=== PATIENT | female | born 1965 | race Caucasian/White ===

== ENCOUNTER → 2019-07-03 | Outpatient (REF) | payer MEDICAID, MEDICARE ==
[2019-07-03 14:07] LABS: AMORPHOUS SEDIMENT SMALL (NEGATIVE); APPEARANCE, URINE CLEAR (CLEAR); BACTERIA, URINE AUTO 1+ (NEGATIVE); BILIRUBIN, URINE AUTO NEGATIVE (NEGATIVE); BLOOD, URINE BLOOD 1+ (NEGATIVE); COLOR, URINE STRAW (YELLOW); GLUCOSE, URINE (UA) AUTO NEGATIVE (NEGATIVE); KETONE, URINE AUTO NEGATIVE (NEGATIVE); LEUKOCYTE ESTERASE, URINE AUTO NEGATIVE (NEGATIVE); MUCUS, URINE SMALL (NEGATIVE); NITRITE, URINE AUTO NEGATIVE (NEGATIVE); PROTEIN, URINE AUTO NEGATIVE (NEGATIVE); RBC, URINE AUTO 0 /HPF (0-3); SPECIFIC GRAVITY URINE AUTO 1.003 (1.002-1.035); SQUAMOUS EPITHELIAL CELL UR AU 1 /HPF (0-6); UROBILINOGEN, URINE AUTO 0.2 mg/dL (0.0-2.0); WBC, URINE AUTO 0 /HPF (0-3)
== END ==
LOC: M SMT 12:57
PROVIDERS: ATTEND Nurse Practitioner Women's Health
DX: R32 Unspecified urinary incontinence (principal)
CPT/HCPCS: 51798; 81001; 87086; G0463

== ENCOUNTER 2020-01-02 06:13 | Day surgery (SDC) | payer MEDICARE ==
[2020-01-02] VITALS (8 sets, daily range): BP systolic 82–108; BP diastolic 56–68
[~2020-01-02] VITALS: Ht 175.3 cm; Wt 99.3 kg
[~2020-01-02 06:13] MED LIST: ADV500INH INH; ASPI81TA85 PO; BUPR15TA PO; CRES10TA PO; CYMB60CA3 PO; DICY20TA11 PO; ESTR1TAB PO; LOSA25TA14 PO; PROAAER10 INH; PROT1TAB2 PO; QC F0.52 PO; REGL5TAB2 PO; SPIR12.9 INH; TOPA1TAB PO; TOPA50TA8 PO; VITA500079 PO; ceFAZolin SOD 2 GM in IV 1 EA IV ONE; estradiol cream VG
[2020-01-02] MEDS ORDERED: propofoL 200 MG/20 ML VIAL As Ordered ONE ×2 (07:10→07:11)
[2020-01-02] MEDS ORDERED: LIDOCAINE 2% INJ 100 MG/5 ML SDV (FOR ANES.) As Ordered ONE ×2 (07:10→07:11)
[2020-01-02] MEDS ORDERED: MIDAZOLAM INJ 2 MG/2 ML VIAL (J2250) As Ordered ONE (07:10)
[2020-01-02] MEDS ORDERED: fentaNYL 100 MCG/2 ML INJECTION (J3010) As Ordered ONE ×2 (07:11→09:39)
[2020-01-02] MEDS ORDERED: ESTROGENS VAGINAL CREAM 30GM As Ordered ONE (07:13)
[2020-01-02] MEDS ORDERED: BUPIVACAINE/EPIN 0.25% 30 ML VIAL As Ordered ONE (07:13)
[2020-01-02] MEDS ORDERED: METHYLENE BLUE 0.5% (5MG/ML) 10 ML AMP (PROVAYBLUE)(Q9968 PER 1MG) As Ordered ONE (07:14)
[2020-01-02] MEDS ORDERED: BACITRACIN PWD 50,000 UNITS VIAL As Ordered ONE (07:14)
[2020-01-02] MEDS ORDERED: dexameTHASONE 4 MG/ML 1ML VIAL (J1100) As Ordered ONE (07:45)
[2020-01-02] MEDS ORDERED: ONDANSETRON 4MG/2ML VIAL (J2405) As Ordered ONE (07:59)
[2020-01-02] MEDS ORDERED: ACETAMINOPHEN 1000MG 100ML IV BTL (OFIRMEV) (J0131 PER 10MG) As Ordered ONE (07:59)
[2020-01-02] MEDS ORDERED: METOCLOPRAMIDE INJ 10MG/2ML VIAL (J2765) As Ordered ONE (07:59)
[2020-01-02] MEDS ORDERED: KETOROLAC 60 MG/2 ML VIAL (J1885) As Ordered ONE (07:59)
[2020-01-02] MEDS ORDERED: LR 1,000 ML IV ONE (08:00)
[2020-01-02] MEDS: BUPIVACAINE/EPIN 0.25% 30 ML VIAL As Ordered ONE ×2 (08:15→08:32)
[2020-01-02] MEDS ORDERED: FLUORESCEIN 10% (100MG/ML) 5 ML VIAL As Ordered ONE (08:38)
[2020-01-02] MEDS ORDERED: ONDANSETRON 4MG/2ML VIAL (J2405) IV PRN (10:45)
[2020-01-02] MEDS ORDERED: PERCOCET 5MG/325MG TAB PO PRN ×2 (10:45)
[2020-01-02] MEDS ORDERED: fentaNYL 100 MCG/2 ML INJECTION (J3010) IV PRN (10:45)
[2020-01-02] MEDS ORDERED: NS 1,000 ML IV ONE (16:45)
[2020-01-02] MEDS ORDERED: TOPIRAMATE (TopAMAX) 25 MG TAB PO SCH (21:00)
--- NOTE | 2020-01-02 21:46 | RO ---
DATE OF PROCEDURE: 01/02/2020 PREOPERATIVE DIAGNOSES: Complete symptomatic pelvic prolapse and mixed urinary incontinence. POSTOPERATIVE DIAGNOSES: Complete symptomatic pelvic prolapse and mixed urinary incontinence. OPERATIVE PROCEDURE: Cystocele repair with the use of cadaveric fascia jass, rectocele repair with the use of porcine dermis, sacrospinous ligament fixation and placement of a mid urethral sling with a TVT/O-O by [employer]. SURGEON: Dr. Kay Best ANESTHESIA: General. MEDICATIONS: Ancef 2 grams preoperatively. DRAINS: 18-Finnish Garcia catheter. ESTIMATED BLOOD LOSS: 100 mL INDICATIONS FOR PROCEDURE The patient is a 53-year-old female with significant mixed urinary incontinence found to have a significant stress component and on physical examination with a grade 3 cystocele and a grade 3 rectocele. Urodynamic studies were done and this showed leakage with stress maneuvers but also fairly significant hypersensation. She has been on Myrbetriq 50 mg for overactive bladder symptoms. After discussing all different options, alternatives, risks and benefits it was decided to proceed with surgical management. DESCRIPTION OF PROCEDURE: The patient was brought into the operating room. Sequential compression devices were in place and preoperative antibiotics were given. Anesthesia was induced. She was then placed in the lithotomy position and careful attention was paid that her pressure points were well padded and protected. She was prepped and draped in the usual fashion and an 18-Finnish Garcia catheter was placed and left to gravity drainage. Next, a [place] retractor was utilized. 0.25% Marcaine with epinephrine was injected into the anterior vaginal wall and an incision was made from the bladder neck back to the apex. Vaginal mucosa was sharply dissected free from underlining fascia. The cystocele was then reduced and the fascia rounded was reapproximated using #2-0 chromic sutures. Next, using a Capio needle passer vaginal vault suspension was done by placing needles 1 cm medial to the sacrospinous ligaments posteriorly and through Patrick's ligaments anteriorly. A piece of cadaveric fascia jass 4 x 7 was soaked and trimmed to size and the Capio sutures were passed through this and this was then used to augment the cystocele repair. Copious antibiotic irrigation was utilized and vaginal mucosa was closed using a running locking #2-0 chromic suture. Next, attention was paid to the rectocele. 0.25% Marcaine with epinephrine was injected posteriorly and the midline incision was made. Vaginal mucosa again was dissected from underlying perirectal fascia. Perirectal fascia was then reapproximated using #2-0 chromic sutures per primary rectocele repair. Next, using the Capio needle passer, sutures were placed 1 cm medial to the ischial spines and then near the perineal bodies and this was brought through a piece of a porcine dermis that had been soaked in antibiotic irrigation. This was trimmed to size and then placed to augment the rectocele repair and allow for a vaginal vault suspension. Copious antibiotic irrigation was utilized and the perineal bodies were reapproximated. Next, vaginal mucosa was closed using a #2-0 chromic locking suture. A rectal exam was done and there was no evidence of rectal injury. Next, a 1 cm incision was made 1 cm from the urethral meatus and an incision was made. Dissection was then completed towards the obturator membranes bilaterally. The tension-free vaginal tape passing device was first placed on the right-hand side through the periurethral incision and out through the obturator membrane and skin. This was then repeated on the left. There was no evidence of vaginal mucosal injury. A 12-Finnish Hegar dilator was placed underneath the sling for appropriate tensioning and the plastic coverings were removed and the sling was positioned. The sling was then cut at the level of the skin. Copious antibiotic irrigation was utilized and vaginal mucosa was closed using a #2-0 chromic suture. Cystoscopy had been done several times during the above and at the end of the sling been passed, there was excellent efflux of fluorescein through both ureteral orifices and no evidence of bladder injury. There were no stones, erythematous patches, lesions or other significant abnormalities in the bladder. The patient tolerated the procedure well and vaginal packing was placed. She was then returned to the recovery room in stable condition with the Garcia catheter replaced and draining urine.
[2020-01-02] MEDS: buPROPion **SR TABLET** (ZYBAN) 150MG PO SCH (21:47)
[2020-01-02] MEDS: BACTRIM 160MG/800MG DS TAB PO SCH (21:47)
[2020-01-02] MEDS: METOCLOPRAMIDE 5 MG TAB PO SCH (21:48)
[2020-01-02] MEDS: PANTOPRAZOLE 40MG TAB (PROTONIX) PO SCH (21:48)
[2020-01-03] VITALS: BP 100/54
[2020-01-03 05:00] VITALS: BP 112/66
[2020-01-03 08:00] VITALS: BP 111/72
[2020-01-03] MEDS ORDERED: ADVAIR HFA 230/21MCG INHALER INH SCH (08:00)
[2020-01-03] MEDS: BACTRIM 160MG/800MG DS TAB PO SCH (08:26)
[2020-01-03] MEDS: METOCLOPRAMIDE 5 MG TAB PO SCH (08:27)
[2020-01-03] MEDS: PANTOPRAZOLE 40MG TAB (PROTONIX) PO SCH (08:27)
[2020-01-03] MEDS: buPROPion **SR TABLET** (ZYBAN) 150MG PO SCH (08:28)
[2020-01-03] MEDS ORDERED: TOPIRAMATE (TopAMAX) 25 MG TAB PO SCH ×2 (09:00→21:00)
[2020-01-03] MEDS ORDERED: DULoxetine 30 MG CAP (CYMBALTA) PO SCH (09:00)
[2020-01-03] MEDS ORDERED: estradioL 1 MG TAB PO SCH (09:00)
[2020-01-03] MEDS ORDERED: ROSUVASTATIN 10 MG TAB (CRESTOR) PO SCH (09:00)
[2020-01-03] MEDS ORDERED: ALBUTEROL 90 MCG/ACT 8GM HFA INHALER INH SCH (09:45)
[2020-01-03] MEDS ORDERED: PERCOCET PO (09:52)
[2020-01-03] MEDS ORDERED: METOCLOPRAMIDE 5 MG TAB PO SCH (21:00)
[2020-01-03] MEDS ORDERED: PANTOPRAZOLE 40MG TAB (PROTONIX) PO SCH (21:00)
[2020-01-03] MEDS ORDERED: buPROPion **SR TABLET** (ZYBAN) 150MG PO SCH (21:00)
[2020-01-04] MEDS ORDERED: estradioL 1 MG TAB PO SCH (09:00)
[2020-01-04] MEDS ORDERED: LOSARTAN 25 MG TAB PO SCH (09:00)
[2020-01-04] MEDS ORDERED: ASPIRIN 81 MG ENTERIC TAB PO SCH (09:00)
[2020-01-04] MEDS ORDERED: ROSUVASTATIN 10 MG TAB (CRESTOR) PO SCH (09:00)
[2020-01-04] MEDS ORDERED: DULoxetine 30 MG CAP (CYMBALTA) PO SCH (09:00)
[2020-01-04] MEDS ORDERED: TOPIRAMATE (TopAMAX) 25 MG TAB PO SCH (09:00)
== END 2020-01-03 12:15 | disposition home or self-care (01) ==
LOC: M SDC 06:13 → M PED 11:53 → M SDC 01-03 12:15
PROVIDERS: ATTEND Specialist
DX: N81.3 Complete uterovaginal prolapse (principal); N39.46 Mixed incontinence; J44.9 Chronic obstructive pulmonary disease, unspecified; R07.9 Chest pain, unspecified; I10 Essential (primary) hypertension; Z87.891 Personal history of nicotine dependence; Z79.899 Other long term (current) drug therapy; E78.49 Other hyperlipidemia
CPT/HCPCS: 57240; 57267; 57282; 57288; 96360; C1762; C1771; J0131; J0690; J1100; J1885; J2250; J2405; J2765; J3010

== ENCOUNTER → 2020-01-29 | Outpatient (REF) | payer MEDICARE ==
[~2020-01-29] MED LIST changes: +PERCOCET PO; -ceFAZolin SOD 2 GM in IV 1 EA IV ONE
== END ==
LOC: M SMT 13:15
PROVIDERS: ATTEND Specialist
DX: N81.11 Cystocele, midline (principal)
CPT/HCPCS: 51798; 87480; 87510; 87660; G0463

== ENCOUNTER → 2021-05-27 | Outpatient (REF) | payer MEDICARE ==
[~2021-05-27] MED LIST changes: -ASPI81TA85 PO; +ASPI81TA86 PO
[2021-05-27 13:54] LABS: BACTERIA, URINE AUTO NEGATIVE (NEGATIVE); RBC, URINE AUTO 2 /HPF (0-3); SQUAMOUS EPITHELIAL CELL UR AU 0 /HPF (0-6); WBC, URINE AUTO 0 /HPF (0-3)
== END ==
LOC: M SMT 13:16
PROVIDERS: ATTEND Specialist
DX: R32 Unspecified urinary incontinence (principal)

== ENCOUNTER → 2021-08-04 | Outpatient (REF) | payer MEDICARE | LOC: M SMT 13:21 | PROVIDERS: ATTEND Urology | DX: N30.00 Acute cystitis without hematuria (principal) ==

== ENCOUNTER → 2025-07-09 | Outpatient (REF) | payer MEDICARE ==
[~2025-07-09] MED LIST changes: -ADV500INH INH; +ADVA1AER10 INH; -CYMB60CA3 PO; +CYMB60CA4 PO; -DICY20TA11 PO; +DICY20TA20 PO; +LOSA25TA13 PO; -LOSA25TA14 PO
[2025-07-09 18:15] LABS: APPEARANCE, URINE HAZY (CLEAR); BACTERIA, URINE AUTO 1+ (NEGATIVE); BILIRUBIN, URINE AUTO NEGATIVE (NEGATIVE); BLOOD, URINE BLOOD 1+ (NEGATIVE); GLUCOSE, URINE (UA) AUTO NEGATIVE (NEGATIVE); KETONE, URINE AUTO NEGATIVE (NEGATIVE); LEUKOCYTE ESTERASE, URINE AUTO 2+ (NEGATIVE); MUCUS, URINE SMALL (NEGATIVE); NITRITE, URINE AUTO NEGATIVE (NEGATIVE); PROTEIN, URINE AUTO NEGATIVE (NEGATIVE); RBC, URINE AUTO 6 /HPF (0-3); SPECIFIC GRAVITY URINE AUTO 1.018 (1.002-1.035); SQUAMOUS EPITHELIAL CELL UR AU 13 /HPF (0-6); UROBILINOGEN, URINE AUTO 0.2 mg/dL (0.0-2.0); WBC, URINE AUTO 26 /HPF (0-3)
== END ==
LOC: M SMT 16:56
PROVIDERS: ATTEND Nurse Practitioner Family
DX: N39.0 Urinary tract infection, site not specified (principal)